=== PATIENT | male | born 1995 | race Two or more races ===

== ENCOUNTER 2018-01-04 18:35 | Emergency (ER) | payer MEDICAID, OTHER ==
[~2018-01-04] VITALS: Ht 160 cm; Wt 68.0 kg
[2018-01-04 19:06] VITALS: BP 108/53
== END 2018-01-05 01:14 | disposition left against medical advice (07) ==
LOC: EDBD 18:35 → ER 18:45
DX: F41.9 Anxiety disorder, unspecified (principal); Z53.21 Procedure and treatment not carried out due to patient leaving prior to being seen by health care provider